=== PATIENT | female | born 1990 | race Hispanic/Latino ===

== ENCOUNTER 2018-07-05 08:01 | Observation (INO) | payer OTHER ==
[2018-06-29 18:20] VITALS: BMI 23.3
[2018-07-05] MEDS ORDERED: Lactated Ringer's 1,000 ML IV ONE ×4 (09:10→13:30)
[2018-07-05 09:13] LABS: BASO % 0.7 % (0.0-2.0); EOS # 0.1 K/uL (0.0-0.7); EOS % 1.2 % (0.0-4.0); HEMOGLOBIN 13.1 g/dL (12.0-16.0); LYMPH # 1.8 K/uL (1.0-4.3); LYMPH % 29.9 % (20.0-40.0); MEAN CELL VOLUME 87.5 fl (81.0-99.0); MEAN CORPUSCULAR HGB CONC 33.2 g/dL (33.0-37.0); MEAN PLATELET VOLUME 9.9 fl (7.2-11.7); MONO # 0.4 K/uL (0.0-0.8); MONO % 6.7 % (0.0-10.0); NEUT # 3.7 K/uL (1.8-7.0); NEUT % 61.5 % (50.0-75.0); NRBC % 0.1 % (0.0-0.0); RBC 4.52 Mil/uL (3.80-5.20); RED CELL DISTRIBUTION WIDTH 12.6 % (11.5-14.5)
[2018-07-05] MEDS ORDERED: Propofol 10 mg/ml Inj (20 ML) ONE (10:07)
[2018-07-05] MEDS ORDERED: Midazolam 2 MG/2 ML VIAL ONE (10:08)
[2018-07-05] MEDS ORDERED: ePHEDrine 50 mg/ml Inj ONE (10:08)
[2018-07-05] MEDS ORDERED: Rocuronium 10 mg/ml (5 ml) ONE (10:08)
[2018-07-05] MEDS ORDERED: Bupivacaine HCl 0.5% PF (30 ml) Inj ONE (10:11)
[2018-07-05] MEDS ORDERED: Silver Nitrate Topical - Stick ONE (10:11)
[2018-07-05] MEDS ORDERED: Succinylcholine 200 mg/10 ml Inj IV ONE (10:14)
[2018-07-05] MEDS ORDERED: Lidocaine 4% (Laryng-O-Jet) Kit MM ONE (10:24)
[2018-07-05] MEDS ORDERED: Dexamethasone 4 mg/1 ml ONE (11:07)
[2018-07-05] MEDS ORDERED: Neostigmine 1:1000 (1 mg/ml) Inj ONE (12:20)
[2018-07-05] MEDS ORDERED: Desflurane Inhalation Anesthetic Liq (240 ml) ONE (12:36)
[2018-07-05] MEDS ORDERED: Silver Nitrate Topical - Stick TOP ONE (13:04)
[2018-07-05] MEDS ORDERED: Lactated Ringer's 500 ML IV ONE (13:30)
[2018-07-05] MEDS ORDERED: DiphenhydrAMINE 50 mg/ml Inj IVP PRN (13:39)
[2018-07-05] MEDS ORDERED: Droperidol 2.5 mg/ml Inj IVP PRN (13:39)
[2018-07-05] MEDS ORDERED: Lactated Ringer's 1,000 ML IV SCH (13:45)
[2018-07-05] MEDS: HYDROmorphone 0.5 mg/0.5 ml ISec IVP PRN ×4 (14:00→14:55)
[2018-07-05] MEDS: Lactated Ringer's 1,000 ML IV SCH (18:50)
[2018-07-05] MEDS ORDERED: Oxycodone/Acetaminophen 5/325 mg Tab PO PRN (19:23)
[2018-07-06] MEDS: Lactated Ringer's 1,000 ML IV SCH ×2 (01:55→09:35)
[2018-07-06 06:15] VITALS: O2SAT 98
[2018-07-06 06:38] LABS: MEAN CELL VOLUME 87.5 fl (81.0-99.0); MEAN CORPUSCULAR HEMOGLOBIN 29.4 pg (27.0-31.0); MEAN CORPUSCULAR HGB CONC 33.6 g/dL (33.0-37.0); RBC 3.73 Mil/uL (3.80-5.20); RED CELL DISTRIBUTION WIDTH 12.7 % (11.5-14.5); WHITE BLOOD COUNT 10.3 K/uL (4.8-10.8)
[2018-07-06 06:53] LABS: BLOOD UREA NITROGEN 6 mg/dl (7-17); CALCIUM 9.1 mg/dL (8.4-10.2); GFR NON-AFRICAN AMERICAN > 60
--- NOTE | 2018-07-06 07:27 | OP ---
PROCEDURE DATE: 07/05/2018 SURGEON: Gustavo Rayo MD WRAPPER AND PRESERVER: Vinay Oneal MD ANESTHESIOLOGIST: Arlene Fink MD TYPE OF ANESTHESIA: General endotracheal. PREOPERATIVE DIAGNOSES: 1. Incapacitating pelvic pain. 2. Incapacitating abdominal pain. 3. Abnormal uterine bleeding. 4. Significant pelvic endometriosis. 5. History of previously failed medical and surgical therapy. 6. Gastrointestinal and genitourinary symptoms. 7. Rule out interstitial cystitis. 8. History of severe endometriosis and pelvic adhesions POSTOPERATIVE DIAGNOSES: 1. Incapacitating pelvic pain. 2. Incapacitating abdominal pain. 3. Abnormal uterine bleeding. 4. pelvic endometriosis 5. bowel endometriosis 6. hydrouterers n. PROCEDURES PERFORMED: 1. Exam under anesthesia. 2. Video assisted hysteroscopy. 3. Cystoscopy. 4. Bilateral ureteral catheterization and injection of IC-Green dye. 5. Robotic da Tracy operative laparoscopy. 6. Treatment of endometriosis. 7. Excision of endometriosis. 8. Bilateral ureterolysis. 9. Bilateral ovariolysis. savita to dictate separatly bowel endometriosis COMPLICATIONS: None. SAMPLES SENT: 1. Left Uterosacral l endometriosis. 2. Left periureteral endometriosis. 3. Right periureteral endometriosis. 4. Right uterosacral endometriosis. 5. Left and right ovarian fossa endometriosis. 6. Iliac endometriosis. 7. Posterior cervical endometriosis. 8. Rectal endometriosis, anterior. 9) Cul de sac endometriosis 10) appendix 11) sigmoid endometriosis INDICATION FOR THE PROCEDURE AND CONSENT: The patient had a long history of pelvic pain, dysmenorrhea, dyspareunia, abdominal pain, and bladder pain. The patient had been thoroughly evaluated and counseled regarding the pros and cons of the procedure, the reasonable alternatives, and possible complications. She understood and accepted the risks involved. Literature was provided to the patient. The patient was understanding and given her history and per surgical exam, she was at high risk in an average patient. She accepted all the risks involved, and all the questions had been answered to her satisfaction. FINDINGS OF SURGERY: Genitalia: Normal external genitalia, cervix without lesion and polyps. Hysteroscopy: Hysteroscopy shows a clear uterine cavity with no polyps or masses noticed. Cystoscopy: The cystoscopy was performed to rule out endometriosis and also any interstitial cystitis and also injury. The bladder was normal with no evidence of stone, trigonitis, or cystitis. A positive jet flow was identified in both ureters. Laparoscopy: The upper abdomen appeared to be normal. Gallbladder was normal. Liver edges appeared to be normal. Ascending colon and transverse were normal. There was evidence of adhesions, fibrosis, and endometriosis of the rectovaginal and pelvic sidewalls , sigmoid . The appendix appeared to be affected by endometriosis . Both fallopian tubes appeared to be patent, although there was evidence of inflammation on the serosal surface of both fallopian tubes, and there was slight conglutination of both fimbriated ends although they both appeared to be functional. There was also evidence of mild hydroureters. DESCRIPTION OF THE PROCEDURE: Initiation of the case: After adequate anesthesia was obtained, the patient was placed in the dorsal lithotomy position, and with extreme care, placement of the patient with hyperextension and hyperflexing of the hips. At this point, the patient was prepped and draped. The surgeon was gowned and gloved. A timeout was taken according to the hospital procedure and the procedure was started. At this point, we performed cystoscopy, bilateral ureteral catheterization. A cystoscope was inserted into the bladder under direct visualization and the bladder was visualized. The bladder was free of lesions and tumors. There was no evidence of interstitial cystitis, and there was only mild amount of trigonitis. At this point, both ureters were identified and appeared to be in their normal anatomical position. At this point, utilizing an open 5-[place]er open-ended catheter, the left ureter was catheterized all the way to the distal ureter, and 5 mL of IC-Green was injected into this ureter. Similarly, the contralateral ureter was catheterized all the way to the distal ureter, and 5 mL of IC-Green was injected into the distal ureter. At this point, the stents were removed, and the cystoscope was removed, and the 16-[place] Islander Tyler was inserted into the bladder. At this point, we proceeded with a hysteroscopy. A speculum was placed into vagina, and the anterior lip of the cervix was grasped. The cervix was dilated, and a hysteroscope was inserted into the cavity. The cavity appeared to be of normal size with no evidence of polyps, cysts, adenomyosis, or fibroids. At this point, we proceeded with placement of a trocar and docking of the da Tracy Xi robot. The surgeon was re-gowned and gloved, and open laparoscopy was performed by making incision in the umbilicus and the fascia was incised. The peritoneum was entered in a blunt fashion, and the cannula was inserted under direct visualization. The abdomen was insufflated, and under direct visualization, three additional ports were inserted in the left upper quadrant, left mid quadrant, and right upper quadrant. At this point, the da Tracy Xi robot was brought into the field and docked, and the instruments were inserted under direct visualization. All this with extreme care not to injure the bowel or another area. As per dictation, the upper abdomen appeared to be normal with no evidence of any lesions. At this point, we proceeded with a left ureterolysis. The ureter appeared to be dilated and was clearly identified utilizing IC-Green fluorescent technology. Anesthesia was made in the peritoneum at the top of the pelvic brim, and the incision was then carried down all the way opening the peritoneum all the way down from the pelvic brim, all the way down to the ovarian fossa, extending the incision below the ovary. It was a progressive dissection where the ureter was progressively lateralized and peritoneum was medialized, thus freeing the ureter all the way down to the cross of the uterine vessels. After this was done, the ureter was freed and lateralized, and a larger peritoneum which had been opened, was excised, and sent to pathology. At this point, with the aid of very slow process, I was able to elevate the ovary and proceed with ovariolysis. At this point, we proceeded with a left ovariolysis. The left ovary was adherent to the posterior aspect of the uterus. It was gently dissected in a step by step way. It was peeled off, the ovarian fossa, and an area of extensive fibrosis and endometriosis was exposed. At this point, we proceeded with a right ureterolysis. The ureter was identified again utilizing fluorescent technology on the right hand side and retroperitoneal space was entered, and a full dissection was performed,entering the retroperitoneal space and dissecting the ureter, removing the ureter laterally and the peritoneum medially. A full dissection was performed all the way down to the ovarian fossa and the crossing of the uterine arteries. An area of peritoneum containing endometriosis was dissected and sent to Pathology. At this point, we proceeded with a right ovariolysis. The right ovary was adherent to the peritoneum. It was gently elevated progressively, and dissected off from the peritoneal area. All this done with extreme care to preserve vascularization to the ovary. At this point, we proceeded with treatment of endometriosis and excision of endometriosis. On the left hand side, fibrosis, especially in the left ovarian fossa was excised. In a very progressive step by step fashion, we dissected off fibrosis containing endometriosis and freed up the whole area. The ureters which had been lateralized. Areas of fibrosis and endometriosis were also identified in the posterior cul-de-sac and in the rectovaginal space which was also affected with endometriosis and fibrosis. At this point, we proceeded with the excision of perirectal endometriosis. The rectovaginal area had significant fibrosis and additional endometriosis was dissected from the posterior aspect of the uterus, and the rectovaginal space was entered at the level of the peritoneal reflection. All this done making sure that no damage to the rectum was performed. At this point, endometriosis was also excised from the right uterosacral area which also was affected by fibrosis and endometriosis. At this point, it was checked for hemostasis and appeared to be excellent. Both fallopian tubes were in good condition and patent. At this point the console was handed over to Dr. Oneal from General surgery who proceeded with Davinci Appendectomy procedure and excision of rectal and sigmoid endome triosis. He will dictate that separately. After he was done we checked for hemostasis and organ integrity and all was normal. At this point, the da Tracy Xi robot was removed. The abdomen was desufflated, and the incisions were closed in layers with 0 PDS for the fascia and 4-0 Monocryl for the skin. At the end of the procedure, all tips and instrument counts were correct. The patient tolerated the procedure well and was taken to the recovery room in excellent condition. Perri RICHARD, Gustavo RODRIGUEZ
--- NOTE | 2018-07-06 07:30 | OP ---
OPERATIVE REPORT -Operative Report Date of Procedure: 07/05/2018 Surgeon: Vinay Oneal MD Plastics Technician: Gustavo Rayo MD Anesthesiologist: Arlene Fink MD Anesthesia: General Endo Pre-op Diagnosis: abdominal pain Post-op Diagnosis: same Procedure/Operation Description: 1-Excision and repair sigmoid colon 2-Excision perirectal endometriosis (x4) 3-appendectomy. Brief History: This 27 year old woman was already brought to the operating room by Dr. Rayo when he requested an intraoperative surgical consultation for the diaphragm colon and appendix. Description of the Procedure: The patient had already been brought to the operating room. Dr. Rayo had already initiated the robotic procedure (separate dictation Dr. Rayo). After taking control of the robotic console the first of 4 perirectal lesions was excised circumferentially and with gentle blunt and sharp dissection this lesion was excised and sent separately to pathology. The remaining 3 rectal lesions were excised in a similar manner and sent separately to pathology. The appendix was retracted anteriorly and the mesentery as desiccated with electrocautery to the base. Three 3-0 vicryl endoloops were placed for ligature and the appendix was transected and sent to pathology separately. Hemostasis was deemed adequate. The sigmoid colon lesion was incised circumferentially and removed en bloc using blunt and sharp dissection with the aid of electrocautery. The sigmoid colon was then immediately repaired with multiple interrupted 3-0 Vicryl sutures. Hemostasis was deemed adequate and all counts were correct. The operation was then turned over to Dr. Rayo (separate dictation). Estimated Blood Loss: 15 cc Complications: none Specimen: appendix, rectum x4 and diaphragm Discharge & Condition: stable MTDD
[2018-07-06 08:01] VITALS: BP 106/68; PULSE 89; RESP 16; TEMP 97.9
== END 2018-07-06 15:34 | disposition home or self-care (01) ==
LOC: H.OPSURG 08:01 → H.PEDS 14:19
PROVIDERS: ADMIT Obstetrics & Gynecology Reproductive Endocrinology; ATTEND Obstetrics & Gynecology Reproductive Endocrinology
DX: N80.0 Endometriosis of uterus (principal); N80.1 Endometriosis of ovary; N80.3 Endometriosis of pelvic peritoneum; N80.5 Endometriosis of intestine; N73.6 Female pelvic peritoneal adhesions (postinfective); N93.9 Abnormal uterine and vaginal bleeding, unspecified
CPT/HCPCS: 36415; 44970; 52005; 58560; 58660; 80048; 85025; 85027; 86850; 86900; 88305; 96374; 96376; C1729; G0378; J0330; J0690; J1100; J1170; J1885; J2250; J2405; J2704; J2710; J2765; J3010; J7030; J7120; S2900